=== PATIENT | male | born 1940 ===

== ENCOUNTER 2016-10-07 21:29 | Emergency (ER) | payer OTHER ==
--- NOTE | 2016-10-07 22:59 | ED ORDER SUMMARY ---
..... Patient: HALIMA TONG OrderSheet [facility] VisitID: [id number] [address] [place] [address] 76y, M Registration Date/Time: 10/07/2016 ORDER SHEET Weight: 104.3 kg (stated) Allergies: No Known Drug Allergy GENERAL ORDERS: UA-Culture if indicated Urgent (22:11 10/07/2016 Yanet Boykin) (k 22:15 AMcQuoid ER Tech1) (22:28 Elvia Byrd) MEDICATION ORDERS: IV FLUIDS: ORDER SHEET NOTES: [Electronically signed by Joseph Lange Dr. (23:01 10/07/2016)] [Electronically signed by Fátima Mcclain R.N. (23:32 10/07/2016)] [Electronically locked/signed by Fátima Mcclain R.N. (23:32 10/07/2016)]
--- NOTE | 2016-10-07 22:59 | ED ORDER SUMMARY ---
..... Patient: HALIMA TONG OrderSheet [facility] VisitID: [id number] [address] [place] [address] 76y, M Registration Date/Time: 10/07/2016 ORDER SHEET Weight: 104.3 kg (stated) Allergies: No Known Drug Allergy GENERAL ORDERS: UA-Culture if indicated Urgent (22:11 10/07/2016 Yanet Boykin) (k 22:15 AMcQuoid ER Tech1) (22:28 Elvia Byrd) MEDICATION ORDERS: IV FLUIDS: ORDER SHEET NOTES: [Electronically signed by Joseph Lange Dr. (23:01 10/07/2016)] [Electronically signed by Fátima Mcclain R.N. (23:32 10/07/2016)] [Electronically locked/signed by Fátima Mcclain R.N. (23:32 10/07/2016)]
--- NOTE | 2016-10-07 22:59 | ED NURSING NOTES ---
Clinical Report - Nurses [facility] [address] [place] [address] 10/07/2016 21:29 Patient: HALIMA TONG TRIAGE Triage time 21:40 Oct 07 2016. Acuity: LEVEL 3. Chief Complaint: (Catheter issues). ( Patient reports about one full fag of urine from his Monet today. Monet bag is 4000 ml bag). SEPSIS SCREEN: Sepsis Screen: negative. Negative (no infection suspected/documented). CUCA COMA SCORE: [place] Coma Scale: 15- eyes open spontaneously (4); best verbal response- oriented x 4 (5); best motor response- obeys commands (6). --21:46 Iman Estrada 21:40 10/07/16. BP: 145/54. HR: 70. RR: 20. O2 saturation: 98%. Temp: 98.3 F (oral). Pain level now: 02/14. --21:46 Iman Estrada. Weight: 104.3 kg stated. Height/Length: 67 inches Per Patient. BMI: 36. --21:42 Iman Estrada. Medications Percocet Oral. --21:42 Iman Estrada Antibiotic. --21:42 Iman Estrada. Medication/allergy information source: the patient. --21:46 Iman Estrada. Allergies No Known Drug Allergy. --21:42 Iman Estrada. History Arrived by private vehicle. Historian: patient. Accompanied by family. Primary physician (dashawn laboy). This started today. ( Patient reports surgery on his prostate on September 27. He reports a monet was placed. He has been having leaking for three days off and on. He states his had a fall and hit him in the groin area. He reports increased pain.). PAST MEDICAL HX: Immunizations: up-to-date. SOCIAL HX: Never smoker. No alcohol use or drug use. No infectious disease exposure. ABUSE ASSESSMENT: No report of abuse. NUTRITIONAL RISK ASSESSMENT: The nutritional risk assessment revealed no deficiencies. FUNCTIONAL ASSESSMENT: Functional assessment: no impairments noted. LEARNING NEEDS ASSESSMENT: The learning needs assessment revealed no barriers. FALL RISK ASSESSMENT: Fall risk assessment completed. Risk factors identified include patient age greater than 65 years and impairment of mobility. Fall interventions initiated. Patient placed on stretcher. Side rails up x2. Brakes on Bed in low position. Family at bedside. Call light in reach of patient. Instructed not to get up without assistance. SKIN INTEGRITY ASSESSMENT: Skin integrity risk assessment completed. No skin integrity risk identified. --21:46 Iman Estrada. PROBLEMS: Prostate Disease. Abdominal Pain. Immunizations. --21:43 Iman Estrada. ADDITIONAL SURGERIES: Cholecystectomy. Fracture Repair. Prostatectomy. --21:43 Iman Estrada. Interventions ID band on patient. To treatment room. --21:46 Iman Estrada. PHYSICAL ASSESSMENT Ambulatory to room. Patient gowned. GENERAL / NEURO / PSYCH: Alert. Oriented X 4. Appears in no acute distress. HEENT: Mucous membranes are pink. RESPIRATORY: Respirations not labored. CVS: Normal sinus rhythm noted. GI / : Abdomen soft. Abdominal tenderness in the suprapubic area. Monet catheter in place on arrival returning normal appearing urine. SKIN: Skin is warm and dry. --21:46 Iman Estrada. NURSING PROGRESS NOTES The initial plan of care for this patient has been created This plan of care was discussed with the patient. Monitoring of patient in place. Patient gowned. Head of bed elevated. Reassurance given to the patient. Two patient identifiers checked. Call light placed in reach. Side rails up x 1. Bed placed in lowest position. Brakes of bed on. Patient ready for evaluation- chart flagged and ED physician notified. --21:47 Iman Estrada Urinary catheter present on arrival. Return of less than 50 mL yellow-colored clear urine; attached to bedside drainage bag positioned below the bladder. --22:29 Fátima Mcclain R.N. DISPOSITION / DISCHARGE No learning barriers present. Discharge instructions provided and reviewed with the patient. Patient verbalized understanding. Written instructions provided in Egyptian (followup with PCP on Monday as scheduled). No warning instructions, medication instructions, treatment instructions or referrals given to the patient. The patient was discharged home and accompanied by spouse. He left the Emergency Department ambulatory and via private vehicle. Spouse driving. --23:32 Fátima Mcclain R.N. 23:25 10/07/16. BP: 140/62 taken on the right arm, while sitting. HR: 71 (regular and normal rate). RR: 18 (regular). O2 saturation: 100% on room air. Temp: deferred. Pain level now: 0/10. --23:32 Fátima Mcclain R.N. Departure time: 5. --23:32 Fátima Mcclain R.N. Locked/Released at 10/07/2016 23:32 by Fátima Mcclain R.N.
--- NOTE | 2016-10-07 22:59 | ED CLINICAL REPORT ---
Clinical Report - Physicians/Mid Levels [facility] [address] [place] [address] 10/07/2016 21:29 Patient: HALIMA TONG Time Seen: 21:39; initial patient contact. HISTORY OF PRESENT ILLNESS Chief Complaint: CRAVEN PROBLEM. This started several days ago and is still present. The problem is described as mild. No penile discharge. He has had Craven catheter problems (Prostatectomy 1 week ago.), with complaints of pain. Sexual history is noncontributory. Similar symptoms previously: None. Recent medical care: Not recently seen/assessed. REVIEW OF SYSTEMS No fever, chills, flank pain, hematuria or abdominal pain. No vomiting or diarrhea. All systems otherwise negative, except as recorded above. PAST HISTORY ( Prostate Disease. Abdominal Pain. ADDITIONAL SURGERIES: Cholecystectomy. Fracture Repair. Prostatectomy. -). Medications: Antibiotic. Percocet Oral. Allergies: No Known Drug Allergy. SOCIAL HISTORY Never smoker. No alcohol use or drug use. ADDITIONAL NOTES The nursing notes have been reviewed. PHYSICAL EXAM Vital Signs: 10/07/2016 21:40 BP: 145/54. HR: 70. RR: 20. O2 saturation: 98%. Temp: 98.3 F. Pain level now: 10/10. Have been reviewed. Hypertensive. Heart rate normal. Respiratory rate normal. Temperature normal. Oxygen saturation normal. Appearance: Alert. Oriented X3. No acute distress. Abdomen: Soft and nontender. Bowel sounds normal. Multiple scars present (Steri strips CDI). Back: No CVA tenderness. : Normal genitalia. Skin: Skin warm and dry. No rash. Neuro: Oriented X 3. LABS, X-RAYS, AND EKG Laboratory Tests: UA-Culture if indicated: (MELISSA: 10/07/2016 22:21) ( MsgRcvd 10/07/2016 22:51) Final results Test Result Flag Units (Reference) URINE COLOR YELLOW URINE APPEARANCE CLEAR URINE GLUCOSE NEGATIVE (NEGATIVE) URINE BILIRUBIN NEGATIVE (NEGATIVE) URINE KETONE NEGATIVE (NEGATIVE) URINE SPECIFIC GRAVITY <= 1.005 L (1.010-1.030) URINE PH 6.0 (5.0-8.0) URINE PROTEIN TRACE (NEGATIVE) URINE UROBILINOGEN 0.2 EU/dL (0.2-1.0) URINE NITRITE NEGATIVE (NEGATIVE) URINE BLOOD 3+ (NEGATIVE) URINE LEUK ESTERASE NEGATIVE (NEGATIVE) URINE RBC 3-5 rbc/hpf (0-1) URINE WBC 0-1 wbc/hpf (0-1) URINE EPITHELIAL CELLS NONE SEEN EPI/hpf (0-5) URINE BACTERIA NONE SEEN (NONE SEEN) URINE COMMENT CULT NOT INDICATED URINE CULTURES ARE SET-UP BASED ON THE FOLLOWING CRITERIA:POSITIVE NITRITEPOSITIVE LEUKOCYTE ESTERASEGREATER THAN 10 WHITE BLOOD CELLSMODERATE (2+) OR GREATER BACTERIA . PROGRESS AND PROCEDURES Disposition: Discharged home in good and improved condition. Condition: good. CLINICAL IMPRESSION Acute pelvic pain. INSTRUCTIONS Warnings: GENERAL WARNINGS: Return or contact your physician immediately if your condition worsens or changes unexpectedly, if not improving as expected, or if other problems arise. If there is no urine flowing into your catheter bag. Your Current Medications: CONTINUE TAKING THE FOLLOWING MEDICATIONS: Antibiotic*. Percocet Oral. Follow-up: Follow up with your doctor Monday as scheduled. Screening today revealed the patient's blood pressure to be in the hypertensive range. The patient should follow up with a primary care provider for blood pressure management. (Electronically signed by Joseph Lange Dr. 10/07/2016 23:01)
--- NOTE | 2016-10-07 23:33 | ED MED RECONCILIATION SUMMARY ---
Patient: HALIMA TONG Medication Reconciliation Report [facility] VisitID: [id number] [address] [place] [address] 76y, M Registration Date/Time: 10/07/2016 Weight: 104.3 kg Height/Length: 67 in. BMI: 36.0 ALLERGIES: No Known Drug Allergy The patient's Home Medications are listed below: CONTINUE TAKING THE FOLLOWING MEDICATIONS: Antibiotic Percocet Oral The source(s) of the original Home Medication information: patient The following Medications were given to the patient in the Emergency Department: None. The following Medications were prescribed to the patient: None.
--- NOTE | 2016-10-07 23:33 | ED MAR SUMMARY ---
..... Medication Administration Record [facility] [address] [place] [address] Patient: HALIMA TONG Visit ID: [id number] 76y, M Weight: 104.3 kg Height/Length: 67 in BMI: 36 ALLERGIES: No Known Drug Allergy
--- NOTE | 2016-10-07 23:33 | ED MAR SUMMARY ---
..... Medication Administration Record [facility] [address] [place] [address] Patient: HALIMA TONG Visit ID: [id number] 76y, M Weight: 104.3 kg Height/Length: 67 in BMI: 36 ALLERGIES: No Known Drug Allergy
--- NOTE | 2016-10-07 23:33 | ED DISCHARGE INSTRUCTIONS ---
Patient: HALIMA TONG General Instructions [facility] VisitID: [id number] [place] [address] 76y, M Registration Date/Time: 10/07/2016 Acute pelvic pain. INSTRUCTIONS Warnings: GENERAL WARNINGS: Return or contact your physician immediately if your condition worsens or changes unexpectedly, if not improving as expected, or if other problems arise. If there is no urine flowing into your catheter bag. Your Current Medications: CONTINUE TAKING THE FOLLOWING MEDICATIONS: Antibiotic*. Percocet Oral. Follow-up: Follow up with your doctor Monday as scheduled. Screening today revealed the patient's blood pressure to be in the hypertensive range. The patient should follow up with a primary care provider for blood pressure management. ADDITIONAL INFORMATION Pelvic Pain, Uncertain Cause Based on your visit today, the exact cause of your pelvic pain is not certain. But your condition does not appear to be serious at this time. However, the signs of a serious problem may take more time to appear. Therefore, it is important for you to watch for any new symptoms or worsening of your condition. Home Care: Rest until you are feeling better. Avoid sexual intercourse until your pain goes away. You may use acetaminophen (Tylenol) or ibuprofen (Motrin, Advil) to control pain, unless another medicine was prescribed. [NOTE: If you have chronic liver or kidney disease or ever had a stomach ulcer or GI bleeding, talk with your doctor before using these medicines.] Follow Up with your doctor as advised. If a culture test was taken, call in two days for the results. If the culture is positive, you will be given more advice at that time. Otherwise, follow-up with your doctor or this facility as instructed. Get Prompt Medical Attention if any of the following occur: Fever of 100.4F (38C) or higher, or as directed by your healthcare provider Vaginal discharge Worsening pain Weakness, dizziness or fainting Unexpected vaginal bleeding or passage of overton or white tissue from the vagina Pain that moves to the right lower abdomen You have been given the following additional information: Pelvic Pain, Unknown Cause (Electronically signed by Joseph Lange Dr. 10/07/2016 23:01)
--- NOTE | 2016-10-07 23:33 | ED DISCHARGE INSTRUCTIONS ---
Patient: HALIMA TONG General Instructions [facility] VisitID: [id number] [place] [address] 76y, M Registration Date/Time: 10/07/2016 Acute pelvic pain. INSTRUCTIONS Warnings: GENERAL WARNINGS: Return or contact your physician immediately if your condition worsens or changes unexpectedly, if not improving as expected, or if other problems arise. If there is no urine flowing into your catheter bag. Your Current Medications: CONTINUE TAKING THE FOLLOWING MEDICATIONS: Antibiotic*. Percocet Oral. Follow-up: Follow up with your doctor Monday as scheduled. Screening today revealed the patient's blood pressure to be in the hypertensive range. The patient should follow up with a primary care provider for blood pressure management. ADDITIONAL INFORMATION Pelvic Pain, Uncertain Cause Based on your visit today, the exact cause of your pelvic pain is not certain. But your condition does not appear to be serious at this time. However, the signs of a serious problem may take more time to appear. Therefore, it is important for you to watch for any new symptoms or worsening of your condition. Home Care: Rest until you are feeling better. Avoid sexual intercourse until your pain goes away. You may use acetaminophen (Tylenol) or ibuprofen (Motrin, Advil) to control pain, unless another medicine was prescribed. [NOTE: If you have chronic liver or kidney disease or ever had a stomach ulcer or GI bleeding, talk with your doctor before using these medicines.] Follow Up with your doctor as advised. If a culture test was taken, call in two days for the results. If the culture is positive, you will be given more advice at that time. Otherwise, follow-up with your doctor or this facility as instructed. Get Prompt Medical Attention if any of the following occur: Fever of 100.4F (38C) or higher, or as directed by your healthcare provider Vaginal discharge Worsening pain Weakness, dizziness or fainting Unexpected vaginal bleeding or passage of overton or white tissue from the vagina Pain that moves to the right lower abdomen You have been given the following additional information: Pelvic Pain, Unknown Cause (Electronically signed by Joseph Lange Dr. 10/07/2016 23:01)
--- NOTE | 2016-10-07 23:33 | ED MED RECONCILIATION SUMMARY ---
Patient: HALIMA TONG Medication Reconciliation Report [facility] VisitID: [id number] [address] [place] [address] 76y, M Registration Date/Time: 10/07/2016 Weight: 104.3 kg Height/Length: 67 in. BMI: 36.0 ALLERGIES: No Known Drug Allergy The patient's Home Medications are listed below: CONTINUE TAKING THE FOLLOWING MEDICATIONS: Antibiotic Percocet Oral The source(s) of the original Home Medication information: patient The following Medications were given to the patient in the Emergency Department: None. The following Medications were prescribed to the patient: None.
== END 2016-10-07 23:25 | disposition home or self-care (01) ==
LOC: ED SRH 21:29
DX: T83.84XA Pain due to genitourinary prosthetic devices, implants and grafts, initial encounter (principal); Z98.890 Other specified postprocedural states; Z79.891 Long term (current) use of opiate analgesic; Z79.2 Long term (current) use of antibiotics
CPT/HCPCS: 90004